=== PATIENT | female | born 1945 | race African-American/Black ===

== ENCOUNTER → 2020-07-03 | Outpatient (CLI) | payer OTHER ==
[~2020-07-03] MED LIST: AMLO2.5T45 PO; APIX5TAB MT; ASPI-1497 PO; CARV12.545 MT; FAMO20TA8 PO; FOLI-43 MT; FURO40TA5 MT; LISI20TA31 PO; METH2.5T MT; METO-539 PO; PRED1TAB MT; PROT40 PO; SACU1TAB7 MT; SIMV-46 PO
== END | disposition home or self-care (01) ==
LOC: LAB 11:01
PROVIDERS: ATTEND Internal Medicine Geriatric Medicine
DX: Z01.812 Encounter for preprocedural laboratory examination (principal); Z20.822 Contact with and (suspected) exposure to COVID-19
CPT/HCPCS: 87426